=== PATIENT | male | born 1945 | race Caucasian/White ===

== ENCOUNTER 2019-09-02 07:00 | Emergency (ER) | payer MEDICARE ==
[~2019-09-02] VITALS: Ht 177.8 cm; Wt 84.0 kg
--- NOTE | 2019-09-02 07:24 | NUR ---
PATIENT AMBULATORY TO ER #[id number] WITH C/O TESTICULAR INFECTION WITH PAIN, ONGOING. STATES BLOOD PRESSURE IS LOW TODAY AND HE IS FEELING ANXIOUS.
[2019-09-02] MEDS ORDERED: vancomycin/NS 1 GM ADD-VANTAGE 250 ML IV ONE (07:25)
[2019-09-02] MEDS ORDERED: normal saline 1000ML IV soln IV ONE (07:25)
[2019-09-02] MEDS ORDERED: piperacillin/tazo 3.375gm/50ml 50 ML IV ONE (07:25)
[2019-09-02] MEDS ORDERED: acetaminophen 325mg tablet PO ONE (07:35)
[2019-09-02 08:00] LABS: BASOPHILS % (AUTO) 0.5 % (0-1); EOSINOPHILS # (AUTO) 0.1 X10'3 (0-0.9); EOSINOPHILS % (AUTO) 1.8 % (0-6); HEMATOCRIT 46.4 % (42.0-52.0); HEMOGLOBIN 16.3 g/dl (14.0-17.9); LYMPHOCYTES # (AUTO) 0.4 X10'3 (1.1-4.8); MEAN CORPUSCULAR HEMOGLOBIN 31.9 PG (27.0-31.0); MEAN CORPUSCULAR HGB CONC 35.1 g/dL (33.0-36.5); MEAN CORPUSCULAR VOLUME 90.8 FL (78-98); MEAN PLATELET VOLUME 7.3 FL (7.4-10.4); MONOCYTES # (AUTO) 0.7 X10'3 (0-0.9); MONOCYTES % (AUTO) 9.2 % (2-12); NEUTROPHILS # (AUTO) 6.1 X10'3 (1.8-7.7); NEUTROPHILS % (AUTO) 83.5 % (42-75); PLATELET COUNT 140 X10'3 (140-440); RED BLOOD COUNT 5.11 X10'6 (4.70-6.10); WHITE BLOOD COUNT 7.3 X10'3 (4.5-11.0)
[2019-09-02 08:05] LABS: PARTIAL THROMBOPLASTIN TIME 26 SECONDS (22-32)
[2019-09-02 08:06] LABS: ALANINE AMINOTRANSFERASE 54 U/L (12-78); ALBUMIN 3.6 G/DL (3.4-5.0); ALKALINE PHOSPHATASE 76 IU/L (46-116); ANION GAP 11 (8-16); ASPARTATE AMINO TRANSFERASE 42 U/L (10-37); BILIRUBIN,TOTAL 0.9 MG/DL (0.1-1.0); BLOOD UREA NITROGEN 32 MG/DL (7-18); BUN/CREATININE RATIO 23.2 (5.4-32.0); CALCIUM 9.2 MG/DL (8.5-10.1); CHLORIDE 101 MMOL/L (99-107); CREATININE 1.38 MG/DL (0.60-1.10); GLUCOSE 268 MG/DL (70-104); MAGNESIUM 1.8 MG/DL (1.5-2.4); SODIUM 136 MMOL/L (135-145); TOTAL CARBON DIOXIDE 24.3 MMOL/L (24-32); TOTAL PROTEIN 7.3 G/DL (6.4-8.2); eGFR 50 ML/MIN
[2019-09-02 08:07] LABS: POTASSIUM 4.1 MMOL/L (3.5-5.1)
[2019-09-02 10:06] LABS: CLARITY,URINE CLEAR (Clear); COLOR,URINE AMBER (Yellow)
[2019-09-02 10:07] LABS: UA COLLECTION TYPE CLN CATCH MIDSTREAM
[2019-09-02 10:20] LABS: SQUAMOUS EPITHELIAL CELL,UR FEW /LPF (FEW)
[2019-09-02 10:21] LABS: FINE GRANULAR CAST 0-3 /LPF (NEGATIVE)
[2019-09-02 10:22] LABS: COARSE GRANULAR CAST 0-3 /LPF (NEGATIVE)
[2019-09-02 10:26] LABS: BACTERIA,URINE FEW /HPF (Neg); RBC,URINE 0-2 /HPF (0-2); WBC,URINE 0-4 /HPF (0-4)
[2019-09-02 10:54] VITALS: BP 116/69
== END 2019-09-02 10:57 | disposition home or self-care (01) ==
LOC: ER 07:02
DX: N45.1 Epididymitis (principal); E86.0 Dehydration; I25.10 Atherosclerotic heart disease of native coronary artery without angina pectoris; I10 Essential (primary) hypertension; E11.9 Type 2 diabetes mellitus without complications
CPT/HCPCS: 36415; 71045; 76870; 80053; 81001; 83605; 83735; 84145; 84484; 85025; 85610; 85730; 87040; 93005; 96365; 96366; 96368; 99284; J2543; J3370; J7030

== ENCOUNTER 2021-06-05 05:29 | Day surgery (SDC) | payer MEDICARE ==
[2021-06-01 10:28] LABS: BASOPHILS # (AUTO) 0.1 X10'3 (0-0.2); BASOPHILS % (AUTO) 0.8 % (0-1); EOSINOPHILS # (AUTO) 0.1 X10'3 (0-0.9); EOSINOPHILS % (AUTO) 0.8 % (0-6); LYMPHOCYTES # (AUTO) 1.1 X10'3 (1.1-4.8); LYMPHOCYTES % (AUTO) 14.7 % (21-51); MEAN CORPUSCULAR HEMOGLOBIN 31.1 PG (27.0-31.0); MEAN CORPUSCULAR HGB CONC 33.4 g/dL (33.0-36.5); MEAN CORPUSCULAR VOLUME 93.1 FL (78-98); MEAN PLATELET VOLUME 7.2 FL (7.4-10.4); MONOCYTES # (AUTO) 0.8 X10'3 (0-0.9); MONOCYTES % (AUTO) 11.1 % (2-12); NEUTROPHILS # (AUTO) 5.4 X10'3 (1.8-7.7); NEUTROPHILS % (AUTO) 72.6 % (42-75); PRE OP HEMATOCRIT 45.4 % (42.0-52.0); PRE OP HEMOGLOBIN 15.2 g/dL (14.0-17.9); PRE OP PLATELET COUNT 231 X10'3 (140-440); RED BLOOD COUNT 4.88 X10'6 (4.70-6.10); RED CELL DISTRIBUTION WIDTH 13.8 % (11.5-14.5)
[2021-06-01 10:41] LABS: ALBUMIN 4.2 G/DL (3.4-5.0); ALBUMIN/GLOBULIN RATIO 1.3 (1.1-1.5); ALKALINE PHOSPHATASE 57 IU/L (46-116); BLOOD UREA NITROGEN 24 MG/DL (7-18); BUN/CREATININE RATIO 22.2 (5.4-32.0); CALCIUM 8.8 MG/DL (8.5-10.1); CHLORIDE 106 MMOL/L (99-107); CREATININE 1.08 MG/DL (0.60-1.10); PRE OP ALT 45 U/L (30-65); PRE OP ANION GAP 9 (8-16); PRE OP AST 25 U/L (10-37); PRE OP BILIRUB, TOTAL 0.8 MG/DL (0.0-1.0); PRE OP POTASSIUM 4.3 MMOL/L (3.4-5.1); PRE OP SODIUM 141 MMOL/L (135-145); TOTAL CARBON DIOXIDE 25.6 MMOL/L (24-32); TOTAL PROTEIN 7.4 G/DL (6.4-8.2); eGFR 66 ML/MIN
[2021-06-01 10:44] LABS: PRE OP GLUCOSE 223 MG/DL (70-104)
[~2021-06-05] VITALS: Ht 177.8 cm; Wt 86.2 kg
[2021-06-05] VITALS (7 sets, daily range): BP systolic 108–148; BP diastolic 68–97
[~2021-06-05 05:29] MED LIST: ASPI-1265 PO; ATOR40TA PO; CIDE300T3 PO; DOCU-21 PO; EZET10TA6 PO; FLO0.4C PO; IMMUNE PO; KRIL1CAP21 PO; LOP12.5T PO; METF-900 PO; MULT-964 PO; ringers solution, lacted 1,000 ML IV SCH
[2021-06-05] MEDS ORDERED: cefazolin/dext.iso 2gm/100ml IV ONE (05:30)
[2021-06-05] MEDS ORDERED: famotidine 20mg tablet PO ONE (05:30)
[2021-06-05] MEDS ORDERED: DOCUMENT DATE & TIME OF BETA-BLOCKER PO ONE (05:30)
[2021-06-05] MEDS ORDERED: LIDOcaine 1% (10mg/ml) 2ml vial ONE (05:54)
[2021-06-05] MEDS ORDERED: BUPIVAcaine/PF 2.5mg/ml (0.25%) 10ml vial ONE ×2 (06:38→09:50)
[2021-06-05] MEDS ORDERED: fentaNYL/PF 50MCG/1 ML 2ML syringe ONE (07:10)
[2021-06-05] MEDS ORDERED: morphine 4 MG/ML inj SYRINge IV PRN (07:15)
[2021-06-05] MEDS ORDERED: proCHLORperazine 10 MG/2 ml inj IV PRN (07:15)
[2021-06-05] MEDS ORDERED: meperidine/PF 25mg/ml syringe IV PRN ×3 (07:15)
[2021-06-05] MEDS ORDERED: ringers solution, lacted 1,000 ML IV SCH (07:15)
[2021-06-05] MEDS ORDERED: acetaminophen 1,000mg/100ml IV 100 ML IV PRN (07:15)
[2021-06-05] MEDS ORDERED: morphine 2 MG/ML inj. syringe IV PRN (07:15)
[2021-06-05] MEDS ORDERED: ondansetron/PF 4mg/2ml inj IV PRN (07:15)
[2021-06-05] MEDS ORDERED: hydrALAZINE 20mg/ml inj. IV PRN (07:15)
[2021-06-05] MEDS ORDERED: labetalol 20mg/4ml (5mg/ml) syringe IV PRN (07:15)
[2021-06-05] MEDS ORDERED: propofol inj 20 ML IV ONE (07:32)
[2021-06-05] MEDS ORDERED: midazolam 1 mg/ML 2ml injection ONE (07:32)
[2021-06-05] MEDS ORDERED: LIDOcaine 0.5% (5mg/ml) 50ml vial ONE (07:32)
--- NOTE | 2021-06-05 07:42 | NUR ---
FROM OR ON GURNEY WITH DR. MCMANUS. SNORING. RT HAND MOVES FINGERS WELL. DRESSING CDI. NO CO PAIN. VSS, IV RUNS WELL. CAP REFILL TO FINGERS ON OPERATIVE HAND BRISK.
--- NOTE | 2021-06-05 08:42 | NUR ---
ALL DISCHARGE CRITERIA HAS BEEN MET. VSS, DENIES PAIN, DRSG-CDI, +CAP REFILL, PINK AND WARM, ABLE TO MOVE FINGERS, VOIDING AND ABLE TO SAFELY AMBULATE AND TRANSFER SELF. IV TAKEN OUT WITHOUT ANY COMPLICATIONS. ALL DISCHARGE INSTRUCTIONS COVERED WITH PATIENT AND ALL QUESTIONS ANSWERED. PATIENT TAKEN OUT VIA WHEELCHAIR TO PERSONAL VEHICLE WHERE FAMILY/FRIEND DROVE PATIENT HOME.
== END 2021-06-05 08:42 | disposition home or self-care (01) ==
LOC: PAS 05:29
PROVIDERS: ATTEND Orthopaedic Surgery Hand Surgery
DX: G56.01 Carpal tunnel syndrome, right upper limb (principal); M19.012 Primary osteoarthritis, left shoulder; I48.91 Unspecified atrial fibrillation; I10 Essential (primary) hypertension; I25.10 Atherosclerotic heart disease of native coronary artery without angina pectoris; I25.2 Old myocardial infarction; E11.9 Type 2 diabetes mellitus without complications; N40.0 Benign prostatic hyperplasia without lower urinary tract symptoms; Z20.822 Contact with and (suspected) exposure to COVID-19; Z79.01 Long term (current) use of anticoagulants; Z79.899 Other long term (current) drug therapy; Z79.84 Long term (current) use of oral hypoglycemic drugs; Z95.5 Presence of coronary angioplasty implant and graft; Z87.891 Personal history of nicotine dependence; Z98.890 Other specified postprocedural states
CPT/HCPCS: 36415; 64721; 80053; 82948; 85025; J2001; J2250; J2704; J3010; J3490; U0003; U0005; Z7506; Z7512; A4215; A6449; J7120